=== PATIENT | female | born 1970 | race Caucasian/White ===

== ENCOUNTER 2025-01-22 13:44 | Outpatient (AMB) | payer MEDICAID, SELFPAY ==
--- NOTE | 2025-01-22 14:30 | PD.ORTHCLVIS ---
Vital signs 01/22/25 14:31 Height 1.5 m Height Method Stated Weight 47.826 kg Weight Measurement Method Standing Scale BMI 21.2 BP 125/72 Blood Pressure Source Automatic Cuff Blood Pressure Location Left Upper Arm Position Sitting Respiration 18 Pulse 62 Pulse Source Monitor Temp 97.5 F Temp Source Temporal Artery Scan Pulse Oximetry (%) 100 Oxygen Delivery Method Room Air Med/Allergies Allergies & Medications Allergies NKA* Allergy (Uncoded 01/22/25 14:32) Medication Reconciliation empagliflozin 10 mg tablet (Jardiance) 10 mg PO QAM 01/22/25 [History Confirmed 01/22/25] meloxicam 7.5 mg tablet 7.5 mg PO QDAY #45 tabs 01/22/25 [Rx] Exam Exam Breathing is nonlabored. Patient has a normal mood and affect. Bilateral extremities were evaluated and demonstrates sensation intact to light touch. Palpable pedal pulses are present. No significant edema is present. Bilateral hips were examined. The patient has no pain with log roll of the hips. Internal rotation to 30 degrees and external rotation to 30 degrees is painless. Negative FADIR. Left knee was examined today. The left knee is in reasonable alignment. Range of motion from 0-120 degrees. Knee is stable to varus and valgus as well as AP translation with <5mm. Patient has a negative McMurrays. There is no pain with patellofemoral compression and no crepitus noted. The knee is nontender to palpation. The right knee was also examined. The right knee is in varus alignment. Range of motion from 0-115 degrees. Knee is stable to varus and valgus as well as AP translation with <5mm. Patient has a negative McMurrays. There is no pain with patellofemoral compression and no crepitus noted. The knee is tender to palpation medially. Nonweightbearing films reviewed by me. This demonstrates moderate arthritis of the right knee. Assessment and Plan Problem List (1) Arthritis of knee, right: Status: Acute Plan: Patient is a pleasant 54-year-old female with right knee pain and right knee arthritis. Discussed different treatment options. I do not see weightbearing x-rays. We will likely do cortisone injections and conservative treatment at the next visit. I sent her prescription for meloxicam. Will see her back after weightbearing x-rays are done. Office Procedures GNS Level of Care Nursing/Assessment Patient Status: Initial/New Patient Nursing Assessment/Reassesment: Medication Reconciliation, Update PMH in EMR and Vital Signs Coordination of Care: Complex Care and Chronic Disease 1-5, Education Complex Pt/Fam, Consent,records obtained, informed consent, 1 Ins Authorization, Lab and Imaging orders, Results/Orders obtained and Staff clarify orders Special Needs: Language special needs New Patient Charge New Patient Point Assignment: 1124 New Patient Point Charge: CLINICAL DATA MANAGEMENT MANAGER Level 4 ([id number]) MA Intake Visit Data Collection New Patient or Established: New Patient (never been to [facility]) Reason for Visit:: OA RIGHT KNEE Seen by Clinical Staff ONLY (RN/MA): No Sizing End Bander Required: Yes PCP or OBGYN visit in last 3 months: Yes Hx Now: No Do You Feel Safe at Home: Yes Authorities Contacted: N/A Questionairres Past Medical History Past Medical History Have you ever been diagnosed with any of the following: Cardiology Problems Congestive Heart Failure: No Respiratory Problems Chronic Obstructive Pulmonary Disease (COPD): No Smoking: No Smoking Exposure: No Genital/Urinary Problems Renal Disease: No Endocrine Problems Diabetes Mellitus Type 1: Yes (6.1 AIC) Diabetes Mellitus Type 2: No Subjective Visit Visit for: new patient and knee Immunization / Flu Flu Vaccine in the Last 12 Months: Yes Flu Vaccine Exclusion Criteria: Already Received History of Present Illness Chief complaint: r knee pain Date of injury / onset of symptoms: 07/2024 Patient is a 54-year-old female with right knee pain. Right knee pain has been ongoing for several years. 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 She has not had any injections or anti-inflammatories. The pain is primarily on the lateral aspect of her knee Pain Pain level (0-10): 6 Pain duration: ON AND OFF Pain location: outside (lateral) and anterior Pain quality: sharp and dull Pain timing: increases with activity Associated signs & symptoms: stiffness Ambulatory data Ambulatory device: none Treatments Improvement with previous injections: No Improvement with PT: No Improvement with NSAIDS: no Review of Systems Review of Systems: All systems negative unless otherwise noted in HPI.
[2025-01-22 14:31] VITALS: BP 125/72; PULSE 62; RESP 18; TEMP 36.4; O2SAT 100; BMI 21.2
--- NOTE | 2025-01-22 14:41 | XR_ITS ---
Examination: Bilateral knees single view Right knee PA lateral axial 3 views TECHNIQUE: Bilateral AP knees standing single view Upright right knee PA flexion, lateral upright, axial right knee 3 views total 4 views Date and time: January 22, 2025 1436 hours FINDINGS: Moderate to advanced narrowing medial joint space right knee Moderate osteoarthritis right patellofemoral joint Small knee effusion Mild to moderate narrowing medial joint space left knee No fractures IMPRESSION: Moderate to advanced narrowing medial joint space right knee Moderate osteoarthritis right patellofemoral joint
== END 2025-01-22 14:50 | disposition home or self-care (01) ==
LOC: HODSRG 13:44
PROVIDERS: PCP Registered Nurse Community Health; Referring Provider Registered Nurse Community Health; Supervising Provider Orthopaedic Surgery Adult Reconstructive Orthopaedic Surgery; Visit Provider Orthopaedic Surgery Adult Reconstructive Orthopaedic Surgery
DX: M17.11 Unilateral primary osteoarthritis, right knee (principal); M25.561 Pain in right knee; E10.9 Type 1 diabetes mellitus without complications
CPT/HCPCS: 73564; 99204; G0463

== ENCOUNTER 2025-02-10 14:29 | Outpatient (AMB) | payer MEDICAID, SELFPAY ==
--- NOTE | 2025-02-10 14:57 | ORTHONT_ITS ---
Vital signs 02/10/25 14:58 Height 1.5 m Height Method Measured Weight 48.081 kg Weight Measurement Method Standing Scale BMI 21.3 BP 123/70 Blood Pressure Source Automatic Cuff Blood Pressure Location Left Upper Arm Position Sitting Respiration 16 Pulse 68 Pulse Source Monitor Temp 98 F Temp Source Temporal Artery Scan Pulse Oximetry (%) 97 Oxygen Delivery Method Room Air Med/Allergies Allergies & Medications Allergies NKA* Allergy (Uncoded 02/10/25 14:59) Medication Reconciliation empagliflozin 10 mg tablet (Jardiance) 10 mg PO QAM 01/22/25 [History Confirmed 02/10/25] meloxicam 7.5 mg tablet 7.5 mg PO QDAY #45 tabs 01/22/25 [Rx Confirmed 02/10/25] Exam Exam Breathing is nonlabored. Patient has a normal mood and affect. Bilateral extremities were evaluated and demonstrates sensation intact to light touch. Palpable pedal pulses are present. No significant edema is present. Bilateral hips were examined. The patient has no pain with log roll of the hips. Internal rotation to 30 degrees and external rotation to 30 degrees is painless. Negative FADIR. Left knee was examined today. The left knee is in reasonable alignment. Range of motion from 0-120 degrees. Knee is stable to varus and valgus as well as AP translation with <5mm. Patient has a negative McMurrays. There is no pain with patellofemoral compression and no crepitus noted. The knee is nontender to palpation. The right knee was also examined. The right knee is in varus alignment. Range of motion from 0-115 degrees. Knee is stable to varus and valgus as well as AP translation with <5mm. Patient has a negative McMurrays. There is no pain with patellofemoral compression and no crepitus noted. The knee is tender to palpation medially. Weight bearing xrays demonstrate significant joint space narrowing medially. There is advanced arthritis Assessment and Plan Problem List (1) Arthritis of knee, right: Status: Acute Plan: Patient is a pleasant 54-year-old female with right knee pain and right knee arthritis. We discussed different treatment options with her and the natural history of arthritis. She would like to try cortisone injection of her right knee today Recommend knee cortisone injection as patient would like to proceed with conservative treatment at this time. The risks and benefits of the procedure were reviewed with the patient and patient gave verbal consent to continue with the procedure. Procedure: performed by Dr. Miller Using sterile technique the Right knee was thoroughly prepped with alcohol, and approximately 1 cc of Depo-Medrol 80mg/mL and 4 cc of 0.2% ropivacaine was injected without resistance into the medial tibial femoral joint space. The patient tolerated the procedure. Office Procedures GNS Level of Care Nursing/Assessment Patient Status: Established Patient Nursing Assessment/Reassesment: Medication Reconciliation, Update PMH in EMR and Vital Signs Coordination of Care: Complex Care and Chronic Disease 1-5, Education Complex Pt/Fam, Consent,records obtained, informed consent and Results/Orders obtained Special Needs: Language special needs Established Patient Charge Established Patient Point Assignment: 85 Established Patient Point Charge: EP Level 3 (80-115) Medication Given Medication Given Medication Given: Yes Documented Dose Given: 1 Route: Infiitration Medication Given Medication Given Medication Given: Yes Documented Dose Given: 4 Route: Infiitration Office Meds methylprednisolone acetate 80 mg/mL suspension for injection Performing Provider: Wagner Miller MD Performing Location: [facility] Administered by: Wagner Miller MD on 02/10/25 15:20 Dose Route Admin Location Dispensed Lot Number Expiration Date [facility] Registered Nurse Practitioner 80 mg intra-articular KNEE 1 mL [id number] 12/06/26 [address]-5 [facility] ropivacaine (PF) 2 mg/mL (0.2 %) injection solution Performing Provider: Wagner Miller MD Performing Location: [facility] Administered by: Wagner Miller MD on 02/10/25 15:20 Dose Route Admin Location Dispensed Lot Number Expiration Date [facility] Registered Nurse Practitioner 20 mL Infiltration KNEE 20 mL [id number] 05/08/26 79086-518-72 [facility] Intake Visit Data Collection New Patient or Established: Established Patient (seen at [facility] within 3 years) Reason for Visit:: OA RIGHT KNEE Seen by Clinical Staff ONLY (RN/MA): No Cooper Helper Required: Yes PCP or OBGYN visit in last 3 months: Yes Hx Now: No Do You Feel Safe at Home: Yes Authorities Contacted: N/A Questionairres Past Medical History Past Medical History Have you ever been diagnosed with any of the following: Cardiology Problems Congestive Heart Failure: No Respiratory Problems Chronic Obstructive Pulmonary Disease (COPD): No Smoking: No Smoking Cessation Counseling: No Smoking Exposure: No Genital/Urinary Problems Renal Disease: No Endocrine Problems Diabetes Mellitus Type 1: Yes (6.1 AIC) Diabetes Mellitus Type 2: No Subjective Visit Visit for: follow up visit and knee Immunization / Flu Flu Vaccine in the Last 12 Months: Yes Flu Vaccine Exclusion Criteria: Already Received History of Present Illness Chief complaint: F/U XRAY RESULTS Date of injury / onset of symptoms: 07/2024 Patient is a 54-year-old female with right knee pain. Right knee pain has been ongoing for several years. 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 She has not had any injections or anti-inflammatories. The pain is primarily on the lateral aspect of her knee Pain Pain level (0-10): 6 Pain duration: ON AND OFF Pain location: outside (lateral) and anterior Pain quality: sharp and dull Pain timing: increases with activity Associated signs & symptoms: stiffness Ambulatory data Ambulatory device: none Treatments Improvement with previous injections: No Improvement with PT: No Improvement with NSAIDS: no Review of Systems Review of Systems: All systems negative unless otherwise noted in HPI.
[2025-02-10 14:58] VITALS: BP 123/70; PULSE 68; RESP 16; TEMP 36.6; O2SAT 97; BMI 21.3
== END 2025-02-10 15:24 | disposition home or self-care (01) ==
LOC: HODSRG 14:29
PROVIDERS: PCP Registered Nurse Community Health; Referring Provider Registered Nurse Community Health; Supervising Provider Orthopaedic Surgery Adult Reconstructive Orthopaedic Surgery; Visit Provider Orthopaedic Surgery Adult Reconstructive Orthopaedic Surgery
DX: M17.11 Unilateral primary osteoarthritis, right knee (principal); M25.561 Pain in right knee; E10.9 Type 1 diabetes mellitus without complications
CPT/HCPCS: 20610; 99213; J1010; J2795; G0463